=== PATIENT | male | born 1940 | race Caucasian/White ===

== ENCOUNTER → 2017-11-21 | Day surgery (SDC) | payer MEDICARE ==
[~2017-11-21] MED LIST: MD-Gastroview 120 ML BOT ONE
--- NOTE | 2017-11-21 16:40 | RAD ---
KUB: Date: 11/21/17 HISTORY: Evaluation of gastrostomy tube placement. FINDINGS: Single fluoroscopic image shows a pigtail-type catheter that overlies the stomach region. IMPRESSION: Pigtail catheter overlying the region of the stomach. POS: [facility]
--- NOTE | 2017-11-21 16:42 | SPC ---
GASTROSTOMY TUBE CHECK AND REPOSITIONING: TECHNIQUE/FINDINGS: Gastrografin was introduced and showed the pigtail to be within the stomach. No extravasation. The sutures had broken on the patient, and the patient felt the tube had pulled back, but it was shown to be in good position. The patient was then prepped and draped in the normal sterile fashion. Local anesthesia was obtained with 1% Xylocaine mixed with sodium bicarbonate, and the catheter was resutur ed to the skin. The patient tolerated the procedure well. There were no immediate complications. IMPRESSION: Pigtail type catheter. The tube is confirmed to be within the stomach. The tube was resutured. POS: [facility]
== END ==
LOC: SPEC 14:47
PROVIDERS: ATTEND Internal Medicine Gastroenterology
PROC: 0D20XUZ Change Feeding Device in Upper Intestinal Tract, External Approach (ICD-10-PCS; principal; 2017-11-21)
DX: K94.13 Enterostomy malfunction (principal)
CPT/HCPCS: 74018; 76000

== ENCOUNTER 2018-01-14 09:59 | Day surgery (SDC) | payer MEDICARE ==
[2018-01-11 09:54] VITALS: BMI 19.2
--- NOTE | 2018-01-14 18:57 | OP ---
PREOPERATIVE DIAGNOSIS: Dysphagia. PROCEDURE: After informed consent was obtained, the patient was placed in left lateral decubitus pos ition and anesthesia was administered per the Anesthesia Department. Forward-viewing endoscope was i nserted into esophagus under direct visualization with ease and passed to the distal esophagus, a lar ge amount of saliva was noted in the esophagus. This was aspirated easily. There was no food materi al in the esophagus. An 8 mm balloon was not able to be passed through this very small pinhole lumen . The plastic tip at the end of the balloon could not even go through the lumen. A guidewire assist ed balloon was not available. Procedure was aborted. ASSESSMENT: Extremely tight distal esophageal stricture - unable to pass the smallest balloon. RECOMMENDATIONS: We will discuss with the patient, our options would be to try again with a wire de ded balloon or possibly a referral to [facility] and for EGD and dilatation where he has had that performed previously.
== END 2018-01-14 14:30 | disposition home or self-care (01) ==
LOC: SDC 09:59
PROVIDERS: ATTEND Internal Medicine Gastroenterology
PROC: 0D758ZZ Dilation of Esophagus, Via Natural or Artificial Opening Endoscopic (ICD-10-PCS; principal; 2018-01-14)
DX: K22.2 Esophageal obstruction (principal); Z79.899 Other long term (current) drug therapy; Z53.8 Procedure and treatment not carried out for other reasons